=== PATIENT | female | born 1990 | race Two or more races ===

== ENCOUNTER 2017-10-09 01:20 | Emergency (ER) | payer MEDICAID ==
[~2017-10-09] VITALS: Ht 167.6 cm; Wt 73.0 kg
[2017-10-09] MEDS ORDERED: KETOROLAC 60MG/2ML VIAL IM ONE (07:15)
[2017-10-09] MEDS ORDERED: KETOROLAC 30MG/ML VIAL IV ONE (07:15)
[2017-10-09 11:56] VITALS: BP 117/65
== END 2017-10-09 12:07 | disposition home or self-care (01) ==
LOC: ER 01:20
DX: R07.89 Other chest pain (principal); J45.909 Unspecified asthma, uncomplicated
CPT/HCPCS: 71045; 93005; 96372; 99284; J1885

== ENCOUNTER 2019-05-18 20:22 | Emergency (ER) | payer MEDICAID ==
[~2019-05-18] VITALS: Ht 157.5 cm; Wt 69.0 kg
[2019-05-18] MEDS ORDERED: ONDANSETRON HCL 4MG/2ML INJ IV STA (21:31)
[2019-05-18] MEDS ORDERED: KETOROLAC 30MG/ML VIAL IV STA (21:31)
[2019-05-18] MEDS ORDERED: SODIUM CHLORIDE 0.9% 1,000 ML IV ONE (21:31)
[2019-05-18 22:02] LABS: HEMATOCRIT. 37.3 % (36.0-48.0); HEMOGLOBIN. 12.8 g/dL (12.0-16.0); MEAN CORPUSCULAR HEMOGLOBIN 30.9 pg (28.0-32.0); MEAN PLATELET VOLUME 10.8 fl (7.4-10.4); PLATELET 155 x1000/uL (130-400); RED BLOOD CELL COUNT 4.15 mill/uL (4.2-5.4)
[2019-05-18 22:03] LABS: CLARITY URINE CLEAR (CLEAR); COLOR URINE YELLOW (YELLOW); KETONES URINE NEGATIVE (NEGATIVE); LEUKOCYTE ESTERASE URINE NEGATIVE (NEGATIVE); NITRITE URINE NEGATIVE (NEGATIVE); OCCULT BLOOD URINE 1+ (NEGATIVE); PROTEIN URINE NEGATIVE (NEGATIVE); SPECIFIC GRAVITY URINE 1.005 (1.005-1.030)
[2019-05-18 22:07] LABS: CHLORIDE 104 mEq/L (98-107)
[2019-05-18 22:08] LABS: PROTHROMBIN TIME 10.2 sec (9.6-11.0)
[2019-05-18 22:19] LABS: B-HCG QUANTITATIVE 197 mIU/mL (<3)
[2019-05-18 22:22] LABS: HCG SCREEN POSITIVE
[2019-05-18 22:33] LABS: PLATELET ESTIMATE NORMAL
[2019-05-18] MEDS ORDERED: POTASSIUM CHLORIDE 20MEQ TABLET SR PO ONE (23:15)
[2019-05-19 01:02] VITALS: BP 122/71
== END 2019-05-19 01:05 | disposition home or self-care (01) ==
LOC: ER 20:22
DX: O03.4 Incomplete spontaneous abortion without complication (principal); B34.9 Viral infection, unspecified; K29.70 Gastritis, unspecified, without bleeding
CPT/HCPCS: 36415; 71045; 76705; 76801; 76817; 80053; 81003; 81025; 83605; 83690; 84702; 84703; 85025; 85610; 86850; 86900; 86901; 87804; 96361; 96374; 96375; 99284; J1885; J2405; J7030; J7040; Z7610

== ENCOUNTER 2020-02-17 10:01 | Emergency (ER) | payer MEDICAID ==
[~2020-02-17] VITALS: Ht 157.5 cm; Wt 71.0 kg
[2020-02-17 10:17] VITALS: BP 118/70
[2020-02-17] MEDS ORDERED: ACETAMINOPHEN 325MG TABLET PO ONE (10:45)
[2020-02-17] MEDS ORDERED: KETOROLAC 30MG/ML VIAL IM ONE (13:30)
== END 2020-02-17 13:40 | disposition home or self-care (01) ==
LOC: ER 10:35
DX: S20.219A Contusion of unspecified front wall of thorax, initial encounter (principal); S00.83XA Contusion of other part of head, initial encounter; J45.909 Unspecified asthma, uncomplicated; F12.10 Cannabis abuse, uncomplicated; Z88.8 Allergy status to other drugs, medicaments and biological substances; Y04.0XXA Assault by unarmed brawl or fight, initial encounter; Y93.89 Activity, other specified; Y92.89 Other specified places as the place of occurrence of the external cause; Y99.8 Other external cause status
CPT/HCPCS: 70486; 71250; 72128; 81025; 96372; 99285; J1885